=== PATIENT | female | born 1935 | race Caucasian/White ===

== ENCOUNTER 2017-08-04 11:30 | Observation (INO) | payer MEDICARE, MEDICAID ==
--- NOTE | 2017-08-04 13:01 | ER Document Report ---
ED Medical Screen (RME) - General Mode of Arrival: Wheelchair Information source: Patient - HPI Patient complains to provider of: Shortness of breath Onset: Other - last week Associated Symptoms: Other - see notes above <MAYELIN RIDLEY - Last Filed: 08/04/17 12:56> <LYUBOV COHEN - Last Filed: 08/06/17 10:53> - General Chief Complaint: Shortness Of Breath Stated Complaint: BACK PAIN, DIFFICULTY BREATHING Time Seen by Provider: 08/04/17 12:49 Notes: 82 year old female with history of CHF presents to the ED complaining of shortness of breath that has worsened since last . Patient reports that she was admitted at [facility] for CHF last , but refused to stay. Patient was started on antibiotics for a UTI while at [place]. Patient additionally complains of right back pain that radiates down her right leg which has been ongoing for a few weeks. Patient reports having a chronic productive cough which exacerbates her back pain. Patient denies any burning with urination. Patient on 20 mg Lasix BID and uses oxygen at home. (MAYELIN RIDLEY) - Related Data Allergies/Adverse Reactions: Sulfa (Sulfonamide Antibiotics) Allergy (Verified 11/17/13 18:25) aspirin [Aspirin] Adverse Reaction (Unknown, Verified 11/17/13 16:53) doxycycline [Doxycycline] Adverse Reaction (Verified 11/17/13 16:53) Past Medical History - General Information source: Patient - Social History Family history: Reviewed & Not Pertinent - Past Medical History Cardiac Medical History: Reports: Hx Congestive Heart Failure, Hx Hypercholesterolemia, Hx Hypertension Pulmonary Medical History: Reports: Hx Asthma Denies: Hx Tuberculosis Neurological Medical History: Reports: Hx Cerebrovascular Accident Renal/ Medical History: Reports: Hx Ectopic , Hx Renal Insufficiency GI Medical History: Reports: Hx Gastroesophageal Reflux Disease Musculoskeltal Medical History: Reports Hx Arthritis Skin Medical History: Reports Hx Cellulitis Psychiatric Medical History: Reports: Hx Depression Past Surgical History: Reports: Hx Cholecystectomy, Hx Hysterectomy, Hx Orthopedic Surgery - bilateral knee, R wrist - Immunizations Hx Diphtheria, Pertussis, Tetanus Vaccination: Yes <MAYELIN RIDLEY - Last Filed: 08/04/17 12:56> Review of Systems - Review of Systems Constitutional: See HPI, Recent illness - Admitted for CHF. Antibiotics for UTI EENT: No symptoms reported Cardiovascular: No symptoms reported Respiratory: See HPI, Cough, Short of breath, Sputum Gastrointestinal: No symptoms reported Genitourinary: No symptoms reported. denies: Burning Female Genitourinary: No symptoms reported Musculoskeletal: No symptoms reported Skin: No symptoms reported Hematologic/Lymphatic: No symptoms reported Neurological/Psychological: No symptoms reported <MAYELIN RIDLEY - Last Filed: 08/04/17 12:56> Physical Exam - General General appearance: Alert In distress: None - HEENT Head: Normocephalic, Atraumatic Eyes: Normal Extraocular movements intact: Yes Pupils: PERRL - Respiratory Respiratory status: No respiratory distress Breath sounds: Wheezing - bilaterally, Other - Coarse breath sounds bilaterally. Bibasilar crackles.. No: Normal - Cardiovascular Rhythm: Regular Heart sounds: Normal auscultation - Abdominal Inspection: Normal Tenderness: Nontender <MAYELIN RIDLEY - Last Filed: 08/04/17 12:56> - Vital signs Vitals: Temp Pulse Resp BP Pulse Ox 98.1 F 64 21 H 162/70 H 92 08/04/17 11:39 08/04/17 11:39 08/04/17 11:39 08/04/17 11:39 08/04/17 11:39 Course - Laboratory Result Diagrams: 08/06/17 06:10 08/06/17 06:10 <LYUBOV COHEN - Last Filed: 08/06/17 10:53> - Vital Signs Vital signs: Temp Pulse Resp BP Pulse Ox 98.0 F 70 20 119/53 L 98 08/06/17 07:30 08/06/17 10:12 08/06/17 10:12 08/06/17 07:30 08/06/17 10:12 - Laboratory Laboratory results interpreted by me: 08/04/17 08/04/17 08/04/17 13:35 13:35 13:35 Hgb 16.0 H Carbon Dioxide 34 H AST 37 H NT-Pro-B Natriuret Pep 1300 H Doctor's Discharge <MAYELIN RIDLEY - Last Filed: 08/04/17 12:56> <LYUBOV COHEN - Last Filed: 08/06/17 10:53> - Discharge Clinical Impression: COPD exacerbation Condition: Stable Disposition: ADMITTED OBSERVATION Scribe Documentation - Scribe Written by Scribe:: Dwight Eubanks, 08/04/2017 1303 acting as scribe for :: Long <MAYELIN RIDLEY - Last Filed: 08/04/17 12:56>
[2017-08-04 13:57] LABS: INTERNATIONAL RATION (INR) 0.95; PROTHROMBIN TIME 13.4 SEC (11.4-15.4)
[2017-08-04 14:01] LABS: ABSOLUTE BASOPHILS # (AUTO) 0.1 10^3/uL (0.0-0.2); ABSOLUTE EOSINOPHILS # (AUTO) 0.2 10^3/uL (0.0-0.6); ABSOLUTE LYMPHOCYTES (AUTO) 1.5 10^3/uL (0.5-4.7); ABSOLUTE MONOCYTES (AUTO) 0.8 10^3/uL (0.1-1.4); ABSOLUTE NEUT (AUTO) 7.2 10^3/uL (1.7-8.2); BASOPHILS % (AUTO) 0.5 % (0-2); EOSINOPHILS % (AUTO) 2.1 % (0-6); HEMATOCRIT 46.4 % (36.0-47.0); LYMPHOCYTES % (AUTO) 15.8 % (13-45); MEAN CORPUSCULAR HEMOGLOBIN 31.1 pg (27.0-33.4); MEAN CORPUSCULAR HGB CONC 34.4 g/dL (32.0-36.0); MEAN CORPUSCULAR VOLUME 90 fl (80-97); MONOCYTES % (AUTO) 7.8 % (3-13); PLATELET COUNT 243 10^3/uL (150-450); RED BLOOD COUNT 5.14 10^6/uL (3.72-5.28); RED CELL DISTRIBUTION WIDTH 13.8 % (11.5-14.0); SEGMENTED NEUTROPHILS % (AUTO) 73.8 % (42-78); TOTAL CELLS COUNTED % (AUTO) 100 %; WHITE BLOOD COUNT 9.8 10^3/uL (4.0-10.5)
[2017-08-04 14:13] LABS: ALANINE AMINOTRANSFERASE 36 U/L (9-52); ALBUMIN 3.6 g/dL (3.5-5.0); ALKALINE PHOSPHATASE 117 U/L (38-126); ANION GAP 6 (5-19); ASPARTATE AMINO TRANSFERASE 37 U/L (14-36); BILIRUBIN,DIRECT 0.2 mg/dL (0.0-0.4); BILIRUBIN,TOTAL 1.1 mg/dL (0.2-1.3); BLOOD UREA NITROGEN 18 mg/dL (7-20); CALCIUM 9.3 mg/dL (8.4-10.2); CARBON DIOXIDE 34 mmol/L (22-30); CHLORIDE 101 mmol/L (98-107); GLUCOSE 100 mg/dL (75-110); MAGNESIUM 1.7 mg/dL (1.6-2.3); SODIUM 140.5 mmol/L (137-145); TOTAL PROTEIN 6.9 g/dL (6.3-8.2)
[2017-08-04 14:25] LABS: NT PRO BNP 1300 pg/mL (<450)
[2017-08-04 14:26] LABS: TROPONIN I < 0.012 ng/mL
--- NOTE | 2017-08-04 14:26 | RADIOLOGY REPORT (SQ) ---
EXAM DESCRIPTION: CHEST PA/LAT COMPLETED DATE/TIME: 08/04/2017 2:14 pm REASON FOR STUDY: sob COMPARISON: November 2013 EXAM PARAMETERS: NUMBER OF VIEWS: two views TECHNIQUE: Digital Frontal and Lateral radiographic views of the chest acquired. RADIATION DOSE: NA LIMITATIONS: none FINDINGS: LUNGS AND PLEURA: No opacities, masses or pneumothorax. No pleural effusion. Chronic appe aring changes are identified. MEDIASTINUM AND HILAR STRUCTURES: No masses or contour abnormalities. HEART AND VASCULAR STRUCTURES: Cardiac silhouette is at the upper limits of normal in size. BONES: No acute findings. HARDWARE: None in the chest. OTHER: No other significant finding. IMPRESSION: NO SIGNIFICANT RADIOGRAPHIC FINDING IN THE CHEST. TECHNICAL DOCUMENTATION: JOB ID: [id number] [employer]- All Rights Reserved
[2017-08-04] MEDS ORDERED: FENTANYL CITRATE INJ/PF 100 MCG/2 ML AMPUL IV ONE (15:11)
[2017-08-04] MEDS ORDERED: IPRATROPIUM/ALBUTEROL 0.5-2.5 MG/3 ML AMPUL NEB ONE ×3 (20:56→23:47)
[2017-08-04] MEDS ORDERED: OXYCODONE HCL IR 5 MG TABLET PO PRN (20:57)
[2017-08-04] MEDS ORDERED: FUROSEMIDE INJ/PF 40 MG/4 ML SDV IV ONE (20:59)
[2017-08-04] MEDS ORDERED: METHYLPREDNISOLONE INJ 125 MG/2 ML SDV IV ONE (21:03)
--- NOTE | 2017-08-04 21:03 | ER Document Report ---
ED General - General Chief Complaint: Shortness Of Breath Stated Complaint: BACK PAIN, DIFFICULTY BREATHING Time Seen by Provider: 08/04/17 12:49 Mode of Arrival: Wheelchair Information source: Patient Notes: This is an 82-year-old female with a history of asthma, CHF, obstructive sleep apnea (CPAP), hypertension, arthritis with chronic back pain (oxycodone). Patient presents to the emergency room with shortness of breath, wheezing, cough and low back pain. Patient was in an outside hospital 2 days ago and evaluated and treated and released. She presents with persistent symptoms. - HPI Onset: Last week Onset/Duration: Gradual Quality of pain: No pain Severity: None Pain Level: Denies Associated symptoms: Nonproductive cough, Shortness of breath. denies: Fever Exacerbated by: Movement Relieved by: Remaining still Similar symptoms previously: Yes Recently seen / treated by doctor: Yes - Related Data Allergies/Adverse Reactions: Sulfa (Sulfonamide Antibiotics) Allergy (Verified 11/17/13 18:25) aspirin [Aspirin] Adverse Reaction (Unknown, Verified 11/17/13 16:53) doxycycline [Doxycycline] Adverse Reaction (Verified 11/17/13 16:53) Past Medical History - General Information source: Patient - Social History Smoking Status: Never Smoker Cigarette use (# per day): No Chew tobacco use (# tins/day): No Frequency of alcohol use: None Drug Abuse: None Lives with: Family Family History: Reviewed & Not Pertinent Patient has suicidal ideation: No Patient has homicidal ideation: No - Past Medical History Cardiac Medical History: Reports: Hx Congestive Heart Failure, Hx Hypercholesterolemia, Hx Hypertension Pulmonary Medical History: Reports: Hx Asthma Denies: Hx Tuberculosis Neurological Medical History: Reports: Hx Cerebrovascular Accident Endocrine Medical History: Reports: Hx Diabetes Mellitus Type 2 Renal/ Medical History: Reports: Hx Ectopic , Hx Renal Insufficiency. Denies: Hx Peritoneal Dialysis GI Medical History: Reports: Hx Gastroesophageal Reflux Disease Musculoskeltal Medical History: Reports Hx Arthritis Skin Medical History: Reports Hx Cellulitis Psychiatric Medical History: Reports: Hx Depression Past Surgical History: Reports: Hx Cholecystectomy, Hx Hysterectomy, Hx Orthopedic Surgery - bilateral knee, R wrist - Immunizations Hx Diphtheria, Pertussis, Tetanus Vaccination: Yes Review of Systems - Review of Systems Constitutional: denies: Chills, Fever EENT: No symptoms reported Cardiovascular: See HPI Respiratory: See HPI Gastrointestinal: No symptoms reported Genitourinary: No symptoms reported Female Genitourinary: No symptoms reported Musculoskeletal: See HPI Skin: No symptoms reported Hematologic/Lymphatic: No symptoms reported Neurological/Psychological: No symptoms reported Physical Exam - Vital signs Vitals: Temp Pulse Resp BP Pulse Ox 98.1 F 64 21 H 162/70 H 92 08/04/17 11:39 08/04/17 11:39 08/04/17 11:39 08/04/17 11:39 08/04/17 11:39 Notes: Physical exam: GENERAL: 82-year-old female, alert and oriented 3, appears short of breath. HEAD: Atraumatic, normocephalic. EYES: Pupils equal round and reactive to light, extraocular movements intact, sclera anicteric, conjunctiva are normal. ENT: TMs normal, nares patent, oropharynx clear without exudates. Moist mucous membranes. NECK: Normal range of motion, supple without obvious mass or JVD. LUNGS: Bilaterally HEART: Regular rate and rhythm without murmurs, rubs or gallops. ABDOMEN: Soft, normoactive bowel sounds. No tenderness to palpation. No guarding, no rebound. No masses appreciated. EXTREMITIES: Normal range of motion, no pitting or edema. No clubbing or cyanosis. Back: Patient does have lumbar paraspinal tenderness which is chronic. There is no obvious crepitus or step-offs NEUROLOGICAL: Cranial nerves II through XII grossly intact. Normal speech, moving all extremities. PSYCH: Normal mood, normal affect. SKIN: Warm, Dry, normal turgor, no rashes or lesions noted. Course - Re-evaluation Re-evalutation: 08/05/17 00:49 Patient is continued to wheeze. Continue with the nebulizers, IV steroids, IV antibiotics. Patient to be admitted. - Vital Signs Vital signs: Temp Pulse Resp BP Pulse Ox 98.3 F 62 15 142/75 H 94 08/05/17 01:06 08/04/17 17:30 08/05/17 00:49 08/05/17 00:49 08/05/17 00:49 - Laboratory Result Diagrams: 08/04/17 13:35 08/04/17 13:35 Laboratory results interpreted by me: 08/04/17 08/04/17 08/04/17 13:35 13:35 13:35 Hgb 16.0 H Carbon Dioxide 34 H AST 37 H NT-Pro-B Natriuret Pep 1300 H - Diagnostic Test Radiology reviewed: Image reviewed, Reports reviewed - Chest x-ray shows no obvious infiltrates - EKG Interpretation by Me Rate: Normal Rhythm: NSR - EKG shows normal sinus rhythm with a ventricular rate of 67, left axis deviation, no acute ST-T wave changes Critical Care Note - Critical Care Note Total time excluding time spent on procedures (mins): 60 Discharge - Discharge Clinical Impression: COPD exacerbation Condition: Stable Disposition: ADMITTED OBSERVATION Admitting Provider: Hospitalist - Dr. Desai Unit Admitted: Telemetry
[2017-08-04 21:22] LABS: APPEARANCE,URINE CLEAR; BILIRUBIN,URINE NEGATIVE (NEGATIVE); COLOR,URINE STRAW; GLUCOSE, URINE NEGATIVE (NEGATIVE); KETONES,URINE NEGATIVE (NEGATIVE); LEUKOCYTE ESTERASE,URINE NEGATIVE (NEGATIVE); NITRITE,URINE NEGATIVE (NEGATIVE); PROTEIN,URINE NEGATIVE (NEGATIVE); URINE SPECIFIC GRAVITY 1.009; UROBILINOGEN,URINE NEGATIVE mg/dL (<2.0)
[2017-08-04 21:29] LABS: A TYPE INFLUENZA AG NEGATIVE (NEGATIVE); B INFLUENZA AG NEGATIVE (NEGATIVE)
--- NOTE | 2017-08-04 22:47 | RADIOLOGY REPORT (SQ) ---
EXAM DESCRIPTION: L SPINE WHOLE COMPLETED DATE/TIME: 08/04/2017 10:21 pm REASON FOR STUDY: low back pain COMPARISON: None. NUMBER OF VIEWS: Five views including obliques. TECHNIQUE: AP, lateral, oblique, and sacral radiographic images acquired of the lumbar spine. LIMITATIONS: None. FINDINGS: MINERALIZATION: Osteopenia. ALIGNMENT: 4 mm anterolisthesis of L3 on L4, degenerative appearing. VERTEBRAE: Mild chronic appearing compression deformity of the L1 vertebral body. No acute appearing osseous findings. DISCS: Moderate lower lumbar Multilevel disc space narrowing with osteophytes. POSTERIOR ELEMENTS: Pedicles and facets are intact. No pars defect or posterior arch defects. Moder ate Facet arthropathy is present. HARDWARE: None in the spine. PARASPINAL SOFT TISSUES: Normal. PELVIS: Intact as visualized. No fractures or worrisome bone lesions. SI joints intact. OTHER: No other significant finding. IMPRESSION: No acute appearing osseous findings. Multilevel degenerative changes as described. TECHNICAL DOCUMENTATION: JOB ID: [id number] [place]-72 2010 [employer]- All Rights Reserved
[2017-08-04] MEDS ORDERED: CEFTRIAXONE 1 GM/D5W RTU 1 GM/50 ML RTUPB IV ONE (23:47)
[2017-08-04] MEDS ORDERED: AZITHROMYCIN INJ 500 MG VIAL IV ONE (23:47)
[2017-08-05] MEDS ORDERED: CEFTRIAXONE SODIUM 1,000 MG in DEXTROSE 5%-WATER 50 ML IV ONE (01:00)
[2017-08-05] MEDS ORDERED: ZOLPIDEM TARTRATE 5 MG TABLET PO PRN (01:48)
[2017-08-05] MEDS ORDERED: ONDANSETRON HCL INJ/PF 4 MG/2 ML SDV IV PRN (01:48)
[2017-08-05] MEDS ORDERED: ACETAMINOPHEN 325 MG TABLET PO PRN ×2 (01:48→03:36)
[2017-08-05] MEDS ORDERED: OXYCODONE-ACETAMINOPHEN 5-325 MG TABLET PO PRN (01:48)
[2017-08-05] MEDS ORDERED: IPRATROPIUM/ALBUTEROL 0.5-2.5 MG/3 ML AMPUL NEB ONE (02:15)
--- NOTE | 2017-08-05 02:18 | PDOC H&P ---
History of Present Illness Admission Date/PCP: 08/05/17 00:56 AVIVA SUBRAMANIAN Patient complains of: Nonproductive cough of several weeks duration History of Present Illness: KAVON ROBIN is a 82 year old female who relates that she has been having a nonproductive cough for several weeks. Apparently she went to another emergency room, where she was tested for influenza. This was negative and apparently she was started on antibiotic therapy. However she continued to cough and so presented to our emergency room. She was wheezing on presentation and was given nebulizer treatments with improvement. She is referred to us for ongoing care. Past Medical History Cardiac Medical History: Reports: Hyperlipidema, Hypertension Pulmonary Medical History: Reports: Asthma Denies: Tuberculosis EENT Medical History: Denies: None, Cataracts, Eyes, Ears, Nose, Throat, Other Neurological Medical History: Denies: None, Hemorrhagic CVA, Ischemic CVA, Migraine, Multiple Sclerosis, Seizures, Other Endocrine Medical History: Reports: Diabetes Mellitus Type 2 Malignancy Medical History: Reports: None GI Medical History: Reports: Gastroesophageal Reflux Disease Musculoskeltal Medical History: Reports: Arthritis Skin Medical History: Reports: None Psychiatric Medical History: Reports: Depression Traumatic Medical History: Reports: None Hematology: Reports: None Infectious Medical History: Reports: None Past Surgical History Past Surgical History: Reports: Cholecystectomy, Hysterectomy, Orthopedic Surgery - bilateral knee, R wrist Social History Information Source: Patient Lives with: Alone Smoking Status: Never Smoker Frequency of Alcohol Use: None Hx Recreational Drug Use: No Hx Prescription Drug Abuse: No - Advance Directive Resuscitation Status: Full Code Family History Family History: Hypertension Parental Family History Reviewed: Yes Children Family History Reviewed: Yes Sibling(s) Family History Reviewed.: Yes Medication/Allergy Home Medications: Albuterol Sulfate [Albuterol Sulfate Hfa] 2 puff IH Q6 11/08/13 Albuterol Sulfate [Proair HFA] 3 puff IH Q4 PRN 11/08/13 Fluoxetine HCl [Prozac] 10 mg PO DAILY 11/08/13 Levothyroxine Sodium [Synthroid] 25 mcg PO DAILY 11/08/13 Metoprolol Succinate [Toprol XL 100 mg Tablet] 100 mg PO DAILY 11/08/13 Omeprazole [Prilosec] 20 mg PO DAILY 11/08/13 Acidophilus/Bifido Longum [Lactobacillus Capsule] 1 cap PO BID #60 capsule 11/14 Clindamycin HCl [Cleocin HCl] 300 mg PO QID #40 capsule 11/14/13 Magnesium Oxide [Mag-Ox 400 mg Tablet] 400 mg PO BID #60 tablet 11/14/13 Oxycodone HCl 5 mg PO Q4 PRN #20 tablet 11/14/13 Trazodone HCl [Desyrel 50 mg Tablet] 50 mg PO QHS 11/18/13 Ciprofloxacin HCl [Cipro 500 mg Tablet] 500 mg PO Q18H #0 tablet 11/21/13 Furosemide [Lasix 20 mg Tablet] 20 mg PO DAILY #30 tablet 11/21/13 Rosuvastatin Calcium [Crestor 20 mg Tablet] 20 mg PO QHS #30 tablet 11/21/13 Valsartan [Diovan 80 mg Tablet] 80 mg PO DAILY #30 tablet 11/21/13 Allergies/Adverse Reactions: Sulfa (Sulfonamide Antibiotics) Allergy (Verified 11/17/13 18:25) aspirin [Aspirin] Adverse Reaction (Unknown, Verified 11/17/13 16:53) doxycycline [Doxycycline] Adverse Reaction (Verified 11/17/13 16:53) Review of Systems Constitutional: PRESENT: fatigue. ABSENT: chills, fever(s), night sweats Eyes: ABSENT: visual disturbances Ears: ABSENT: hearing changes Nose, Mouth, and Throat: ABSENT: headache(s), mouth pain Cardiovascular: ABSENT: chest pain, edema, orthropnea, palpitations Respiratory: PRESENT: cough, dyspnea. ABSENT: hemoptysis, sputum Gastrointestinal: PRESENT: heartburn. ABSENT: abdominal pain, constipation, diarrhea, nausea, vomiting Genitourinary: ABSENT: difficulty urinating, dysuria Musculoskeletal: PRESENT: back pain Integumentary: PRESENT: lesions Neurological: ABSENT: convulsions, syncope, vertigo Psychiatric: PRESENT: depression Endocrine: ABSENT: cold intolerance, heat intolerance, polydipsia, polyuria Physical Exam Vital Signs: Temp Pulse Resp BP Pulse Ox 98.3 F 62 15 142/75 H 94 08/05/17 01:06 08/04/17 17:30 08/05/17 00:49 08/05/17 00:49 08/05/17 00:49 General appearance: PRESENT: no acute distress, cooperative, well-nourished Head exam: PRESENT: atraumatic, normocephalic Eye exam: PRESENT: EOMI, PERRLA Ear exam: PRESENT: normal external ear exam Neck exam: ABSENT: carotid bruit, JVD, meningismus Respiratory exam: PRESENT: clear to auscultation stefan, prolonged expiratory phas , rhonchi, unlabored. ABSENT: accessory muscle use Cardiovascular exam: PRESENT: RRR. ABSENT: diastolic murmur, irregular rhythm, systolic murmur GI/Abdominal exam: PRESENT: normal bowel sounds, soft. ABSENT: distended, guarding, organolmegaly, rebound, tenderness Rectal exam: PRESENT: deferred Extremities exam: ABSENT: pedal edema Musculoskeletal exam: PRESENT: normal inspection Neurological exam: PRESENT: alert, awake, oriented to person, oriented to place , oriented to time, oriented to situation Psychiatric exam: PRESENT: appropriate affect, normal mood. ABSENT: suicidal ideation Skin exam: PRESENT: dry, warm, other - Multiple lentigo Results Laboratory Results: 08/04/17 08/04/17 08/04/17 11:47 13:35 13:35 WBC 9.8 Hgb 16.0 H Hct 46.4 Plt Count 243 PT INR Sodium 140.5 Potassium 4.0 Chloride 101 Carbon Dioxide 34 H Anion Gap 6 BUN 18 Creatinine 0.81 Glucose 100 AST 37 H ALT 36 Alkaline Phosphatase 117 Troponin I NT-Pro-B Natriuret Pep Total Protein 6.9 Albumin 3.6 Ur Leukocyte Esterase NEGATIVE Influenza A (Rapid) Influenza B (Rapid) 08/04/17 08/04/17 08/04/17 13:35 13:35 19:30 WBC Hgb Hct Plt Count PT 13.4 INR 0.95 Sodium Potassium Chloride Carbon Dioxide Anion Gap BUN Creatinine Glucose AST ALT Alkaline Phosphatase Troponin I < 0.012 < 0.012 NT-Pro-B Natriuret Pep 1300 H Total Protein Albumin Ur Leukocyte Esterase Influenza A (Rapid) Influenza B (Rapid) 08/04/17 21:00 WBC Hgb Hct Plt Count PT INR Sodium Potassium Chloride Carbon Dioxide Anion Gap BUN Creatinine Glucose AST ALT Alkaline Phosphatase Troponin I NT-Pro-B Natriuret Pep Total Protein Albumin Ur Leukocyte Esterase Influenza A (Rapid) NEGATIVE Influenza B (Rapid) NEGATIVE Impressions: Chest X-Ray 08/04/17 12:59 IMPRESSION: NO SIGNIFICANT RADIOGRAPHIC FINDING IN THE CHEST. Lumbar Spine X-Ray 08/04/17 20:58 IMPRESSION: No acute appearing osseous findings. Multilevel degenerative changes as described. Assessment & Plan - Diagnosis (1) COPD (chronic obstructive pulmonary disease) with chronic bronchitis Is this a current diagnosis for this admission?: Yes (2) Hypertensive disorder, systemic arterial Is this a current diagnosis for this admission?: Yes - Time Time Spent: 30 to 50 Minutes - Plan Summary Plan Summary: Patient will be admitted to observation she will be started on oral steroids as well as continuing bronchodilators. She does not require supplemental oxygen at this point. She has stopped wheezing. We will request a 2D echo for further evaluation of her elevated BNP. Patient will receive DVT prophylaxis with low molecular weight heparin. She will be continued on her home medications
[2017-08-05 05:30] LABS: HEMATOCRIT 44.4 % (36.0-47.0); HEMOGLOBIN 15.3 g/dL (12.0-15.5); MEAN CORPUSCULAR HGB CONC 34.4 g/dL (32.0-36.0); MEAN CORPUSCULAR VOLUME 90 fl (80-97); PLATELET COUNT 227 10^3/uL (150-450); RED BLOOD COUNT 4.94 10^6/uL (3.72-5.28); RED CELL DISTRIBUTION WIDTH 13.7 % (11.5-14.0); WHITE BLOOD COUNT 8.9 10^3/uL (4.0-10.5)
[2017-08-05 06:01] LABS: ANION GAP 10 (5-19); BLOOD UREA NITROGEN 18 mg/dL (7-20); CALCIUM 9.1 mg/dL (8.4-10.2); CARBON DIOXIDE 33 mmol/L (22-30); CHLORIDE 99 mmol/L (98-107); GLUCOSE 147 mg/dL (75-110); POTASSIUM 3.6 mmol/L (3.6-5.0); SODIUM 141.7 mmol/L (137-145)
[2017-08-05] MEDS ORDERED: IPRATROPIUM/ALBUTEROL 0.5-2.5 MG/3 ML AMPUL NEB SCH (08:00)
[2017-08-05] MEDS ORDERED: METHYLPREDNISOLONE DOSEPAK (4 MG/TAB) 21 TAB/DSPK PO PRN (08:00)
--- NOTE | 2017-08-05 08:47 | EKG REPORT ---
SEVERITY:- OTHERWISE NORMAL ECG - SINUS RHYTHM BORDERLINE LEFT AXIS DEVIATION : Confirmed by: Leah Mead MD 05-Aug-2017 08:46:50
--- NOTE | 2017-08-05 08:47 | EKG REPORT ---
SEVERITY:- BORDERLINE ECG - SINUS RHYTHM BORDERLINE IVCD WITH LAD BORDERLINE PROLONGED QT INTERVAL : Confirmed by: Leah Mead MD 05-Aug-2017 08:46:46
[2017-08-05] MEDS ORDERED: ALPRAZOLAM 0.25 MG TABLET PO PRN (09:41)
[2017-08-05] MEDS ORDERED: (PENDING PHARMACY ID) (Olmesartan Medoxomil [Benicar] 40 MG) PO SCH (10:00)
[2017-08-05] MEDS ORDERED: ERGOCALCIFEROL (VITAMIN D2) 50000 UNIT (1.25 MG) CAPSULE PO SCH (10:00)
[2017-08-05] MEDS: MAGNESIUM OXIDE 400 MG TABLET PO SCH (10:25)
[2017-08-05] MEDS: FLUOXETINE HCL 20 MG CAPSULE PO SCH (10:25)
[2017-08-05] MEDS: OXYCODONE HCL IR 5 MG TABLET PO PRN ×2 (10:26→22:02)
[2017-08-05] MEDS: FAMOTIDINE 20 MG TABLET PO SCH ×2 (10:26→21:52)
[2017-08-05] MEDS: HYDRALAZINE HCL 10 MG TABLET PO SCH ×2 (10:27→21:52)
[2017-08-05] MEDS: ENOXAPARIN SODIUM INJ 40 MG/0.4 ML DISP.SYRIN SUBCUT SCH (10:29)
[2017-08-05] MEDS: FLUTICASONE/SALMETEROL DISKUS 250-50 MCG/DOSE IH SCH ×2 (10:31→21:52)
[2017-08-05] MEDS: DOCUSATE SODIUM 100 MG CAPSULE PO SCH (10:31)
[2017-08-05] MEDS: LOSARTAN POTASSIUM 50 MG TABLET PO SCH (12:07)
[2017-08-05] MEDS: METOPROLOL SUCCINATE 50 MG TAB.SR.24H PO SCH (12:08)
--- NOTE | 2017-08-05 13:29 | PROGRESS NOTE E ---
Progress Note NAME: KAVON ROBIN : 1935 AGE: 82Y DATE: 08/05/2017 ROOM: ED70 SUBJECTIVE: The patient is currently lying on a stretcher in the ED. Family is present at the bedside and quite active in the patient's care. The patient states that she does feel better than when she came in. She currently denies any nausea, vomiting, diarrhea. No dizziness or chest pain. The patient has been afebrile. Her blood pressures have been in a good range and the patient does not voice any specific concerns at this time. The patient's back pain, overall, has improved. The patient's family is quite concerned. They describe her sounding crackly, but still sounds more of wheezing that is their concern. The patient did receive a dose of Lasix in the emergency department. Currently awaiting echocardiogram and the patient does not voice any specific concerns at this time. REVIEW OF SYSTEMS: Negative. MEDICATIONS: Medications have been reviewed. OBJECTIVE: GENERAL: The patient is a 76-year-old, female who is awake, alert and oriented to person, place, time, and situation. She is verbal, conversational, and does not appear to be in any acute distress. VITAL SIGNS: As follows: Temperature is 97.8, pulse 82, respirations 16, blood pressure 129/67, oxygen saturation 94% on room air. SKIN: Warm and dry. No rash. She is not diaphoretic. HEENT: Pupils equal, round and reactive to light and accommodation. Conjunctivae pink. There is no evidence of JVP. CARDIOVASCULAR SYSTEM: Heart is regular. No rub. CHEST: Diminished with expiratory wheezes noted in lung enamorado. ABDOMEN: Soft, nontender, nondistended. Bowel sounds are present. EXTREMITIES: No clubbing, cyanosis, or edema; +2 pedal pulses noted bilaterally. PSYCHIATRIC: Appropriate affect, pleasant mood. DIAGNOSTICS: Lab values are as follows: Hematology obtained on 08/05/2017: WBCs are 8.9, hemoglobin 15.3, hematocrit 44.4. Platelet count is 227,000. Chemistry obtained on 08/05/2017: Sodium 141, potassium 3.6, chloride 99, carbon dioxide 33, BUN 18, creatinine 0.84, glucose 147. Calcium is 9.1. IMPRESSION AND PLAN: 1. Chronic obstructive pulmonary disease exacerbation. The patient's symptoms overall appear much improved. Will continue home inhalers and will change nebulizers from scheduled to p.r.n. Xopenex. The patient continues on steroid taper, as well. Will follow. 2. Diastolic dysfunction. The patient states that she was told in [place] that she did not have heart failure. The patient did have diastolic dysfunction during a previous admission. Currently awaiting echo. Will follow. 3. Acute hypoxemic respiratory failure, most likely secondary to the above, currently awaiting echo to help differentiate this and follow. 4. Hypothyroidism. Will continue levothyroxine. 5. Depression. Continue the patient's home medication. 6. Hypertension. Will continue the patient's home medications. 7. Hyperlipidemia. Will continue the patient's home medications. 8. Gastroesophageal reflux disease. Will continue proton pump inhibitor therapy. DISPOSITION: The patient is a FULL CODE. Pending patient's symptomatology and diagnostic findings, we will reevaluate in the a.m. TIME SPENT: On this followup including assessment, plan, physical examination, patient education, review of records, and family meeting is 25 minutes. DICTATING PHYSICIAN: VIJAY NICE NP [id number] PHY#: [id number] ID: [id number] JOB#: [id number] ACCT: [id number] cc: > ETHAN
[2017-08-05] MEDS: LEVALBUTEROL HCL NEB 1.25 MG/3 ML AMPUL NEB PRN (17:52)
[2017-08-05] MEDS: ATORVASTATIN CALCIUM 20 MG TABLET PO SCH (21:52)
[2017-08-06] MEDS: LEVALBUTEROL HCL NEB 1.25 MG/3 ML AMPUL NEB PRN (00:08)
[2017-08-06] MEDS: LANSOPRAZOLE 15 MG TAB.RAP.DR PO SCH (05:29)
[2017-08-06] MEDS: LEVOTHYROXINE SODIUM 0.025 MG TABLET PO SCH (05:29)
[2017-08-06 06:39] LABS: MEAN CORPUSCULAR HEMOGLOBIN 30.9 pg (27.0-33.4); MEAN CORPUSCULAR HGB CONC 34.1 g/dL (32.0-36.0); MEAN CORPUSCULAR VOLUME 91 fl (80-97); PLATELET COUNT 220 10^3/uL (150-450); RED BLOOD COUNT 4.52 10^6/uL (3.72-5.28); RED CELL DISTRIBUTION WIDTH 13.7 % (11.5-14.0); WHITE BLOOD COUNT 9.5 10^3/uL (4.0-10.5)
[2017-08-06 06:52] LABS: ANION GAP 10 (5-19); BLOOD UREA NITROGEN 32 mg/dL (7-20); CALCIUM 9.1 mg/dL (8.4-10.2); CARBON DIOXIDE 30 mmol/L (22-30); CHLORIDE 99 mmol/L (98-107); GLUCOSE 101 mg/dL (75-110); POTASSIUM 3.6 mmol/L (3.6-5.0)
[2017-08-06] MEDS ORDERED: FUROSEMIDE 20 MG TABLET PO SCH (10:00)
[2017-08-06] MEDS: METOPROLOL SUCCINATE 50 MG TAB.SR.24H PO SCH (11:15)
[2017-08-06] MEDS: FLUOXETINE HCL 20 MG CAPSULE PO SCH (11:17)
[2017-08-06] MEDS: MAGNESIUM OXIDE 400 MG TABLET PO SCH (11:17)
[2017-08-06] MEDS: DOCUSATE SODIUM 100 MG CAPSULE PO SCH (11:17)
[2017-08-06] MEDS: ENOXAPARIN SODIUM INJ 40 MG/0.4 ML DISP.SYRIN SUBCUT SCH (11:18)
[2017-08-06] MEDS: FAMOTIDINE 20 MG TABLET PO SCH ×2 (11:18→21:56)
[2017-08-06] MEDS: FLUTICASONE/SALMETEROL DISKUS 250-50 MCG/DOSE IH SCH ×2 (11:19→21:56)
[2017-08-06] MEDS: OXYCODONE HCL IR 5 MG TABLET PO PRN (11:19)
--- NOTE | 2017-08-06 15:39 | PROGRESS NOTE E ---
Progress Note NAME: KAVON ROBIN : 1935 AGE: 82Y DATE: 08/06/2017 ROOM: 423 SUBJECTIVE: The patient is currently lying in bed. She states that overall, her breathing is better today. She still complains of lower back pain which has been a chronic issue for her. The patient's x-ray is consistent with osteoarthritis. The patient denies any nausea, vomiting, diarrhea. No cough or sputum production. No fevers or chills. Patient has been afebrile. Blood pressures have been in a good range and the patient does not voice any other concerns at this time. REVIEW OF SYSTEMS: Review of systems is negative. MEDICATIONS: Medications have been reviewed. OBJECTIVE: GENERAL: The patient is an 82-year-old, female who is awake, alert and oriented to person, place, time, and situation. She is verbal, conversational; does not appear to be in any acute distress. VITAL SIGNS: As follows: Temperature is 98.4, pulse 67, respirations 18, blood pressure 123/52. Oxygen saturation 92% on room air. SKIN: Warm and dry. No rash. Not diaphoretic. HEENT: Pupils equal, round, reactive to light and accommodation. Conjunctivae pink. There is no evidence of JVP. CARDIOVASCULAR SYSTEM: Heart is regular. No rub. CHEST: Diminished, symmetrical, unlabored. ABDOMEN: Soft, nontender, nondistended. BACK: No CVA tenderness or sacral edema. EXTREMITIES: No clubbing, cyanosis, or edema. PSYCHIATRIC: Appropriate affect, pleasant mood. DIAGNOSTICS: Lab values are as follows: Hematology obtained on 08/06/2017: WBCs are 9.5, hemoglobin 14.0, hematocrit 41.1. Platelet count is 220,000. Chemistry obtained on 08/06/2017: Sodium 139, potassium 3.6, chloride 99, carbon dioxide 30, BUN 32, creatinine 1.59, glucose 101. Calcium is 9.1. IMPRESSION AND PLAN: 1. ACUTE ON CHRONIC DIASTOLIC CONGESTIVE HEART FAILURE. THE PATIENT IMPROVED WITH A MINIMAL DIURESIS. Currently awaiting repeat echocardiogram. 2. CHRONIC OBSTRUCTIVE PULMONARY DISEASE EXACERBATION. OVERALL THE PATIENT'S SYMPTOMS ARE MUCH IMPROVED. Continue current medications. 3. ACUTE HYPOXEMIC RESPIRATORY FAILURE SECONDARY TO THE ABOVE; OVERALL, MUCH IMPROVED. 4. HYPOTHYROIDISM. Continue Levothyroxine. 5. DEPRESSION. Continue home medication. 6. HYPERTENSION. Will continue the patient's home meds. 7. HYPERLIPIDEMIA. Will continue patient's home medication. 8. GASTROESOPHAGEAL REFLUX DISEASE. Will continue PPI. DISPOSITION: The patient is a FULL CODE. Pending patient's symptomatology and diagnostic findings, we will reevaluate in the a.m. Time spent on this followup including assessment, plan, physical examination, patient education, review of records, and family meeting is 35 minutes. DICTATING PHYSICIAN: VIJAY NICE NP [id number] PHY#: [id number] ID: [id number] JOB#: [id number] ACCT: [id number] cc: >
[2017-08-06] MEDS: LOSARTAN POTASSIUM 50 MG TABLET PO SCH (16:00)
[2017-08-06] MEDS: HYDRALAZINE HCL 10 MG TABLET PO SCH ×2 (16:01→21:57)
[2017-08-06] MEDS: OXYCODONE-ACETAMINOPHEN 5-325 MG TABLET PO PRN (18:07)
--- NOTE | 2017-08-06 18:57 | XCELERA REPORT ---
[address] [address] Transthoracic Echocardiogram Report Name: KAVON ROBIN Age: 82 yrs Gender: Female : 1935 Patient Status: Inpatient Patient Location: [address] [place] [address] Study Date: 08/06/2017 03:09 PM Height: 62 in Weight: 234 lb BSA: 2.0 m2 Procedure: A complete two-dimensional transthoracic echocardiogram was performed (2D, M-mode, spectral and color flow Doppler). The study was technically difficult with many images being suboptimal in quality. Reason For Study: elevated bnp Ordering Physician: RICHARD KILLIAN Performed By: Evangelina Johnson Interpretation Summary The left ventricular ejection fraction is normal. There is mild concentric left ventricular hypertrophy. The left ventricle is grossly normal size. Doppler measurements suggest pseudonormalized left ventricular relaxation, which is associated with grade II/IV or mild to moderate diastolic dysfunction Wall motion cannot be accurately commented on, but no definite regional wall motion abnormalities noted. The right ventricle is mildly dilated. There is normal right ventricular wall thickness. The right ventricular systolic function is normal. The right atrium is normal in size The left atrium is mildly dilated. There is a trace amount of mitral regurgitation There is no mitral valve stenosis. No aortic regurgitation is present. There is no aortic valve stenosis There is a trace to mild amount of tricuspid regurgitation There is mild pulmonary hypertension by echo Right ventricular systolic pressure is estimated to be elevated at 30- 40mmHg. The aortic root is not well visualized. The inferior vena cava was not well visualized There is no pericardial effusion. MMode/2D Measurements & Calculations RVDd: 2.7 cm LVIDd: 4.1 cm FS: 37.9 % Ao root diam: 2.9 cm IVSd: 1.2 cm LVIDs: 2.6 cm EDV(Teich): 75.6 ml LVPWd: 1.2 cm ESV(Teich): 23.8 ml Ao root area: 6.5 cm2 EF(Teich): 68.5 % Doppler Measurements & Calculations MV E max shikha: MV dec slope: Ao V2 max: LV V1 max P.6 cm/sec 141.8 cm/sec 4.4 mmHg MV A max shikha: 179.4 cm/sec2 Ao max PG: LV V1 max: 64.8 cm/sec MV dec time: 8.0 mmHg 104.7 cm/sec MV E/A: 0.83 0.30 sec PA V2 max: TR max shikha: 89.2 cm/sec 269.2 cm/sec PA max PG: TR max P.0 mmHg 3.2 mmHg Left Ventricle The left ventricle is grossly normal size. There is mild concentric left ventricular hypertrophy. The left ventricular ejection fraction is normal. Doppler measurements suggest pseudonormalized left ventricular relaxation, which is associated with grade II/IV or mild to moderate diastolic dysfunction. Wall motion cannot be accurately commented on, but no definite regional wall motion abnormalities noted. Right Ventricle The right ventricle is mildly dilated. There is normal right ventricular wall thickness. The right ventricular systolic function is normal. Atria The right atrium is normal in size. The left atrium is mildly dilated. Interarterial septum not well visualized and not well dopplered. Cannot comment on ASD/PFO presence. Mitral Valve The mitral valve is grossly normal. There is no mitral valve stenosis. There is a trace amount of mitral regurgitation. Aortic Valve The aortic valve is not well visualized secondary to technical limitations. There is no aortic valve stenosis. No aortic regurgitation is present. Tricuspid Valve The tricuspid valve is not well visualized secondary to technical limitations. There is no tricuspid stenosis. There is a trace to mild amount of tricuspid regurgitation. There is mild pulmonary hypertension by echo. Right ventricular systolic pressure is estimated to be elevated at 30-40mmHg. Pulmonic Valve The pulmonic valve is not well visualized. Great Vessels The aortic root is not well visualized. The inferior vena cava was not well visualized. Effusions There is no pericardial effusion. : RICHARD KILLIAN > Julissa Carvajal
[2017-08-06] MEDS: ATORVASTATIN CALCIUM 20 MG TABLET PO SCH (21:56)
[2017-08-06] MEDS ORDERED: METHYLPREDNISOLONE 4 MG TABLET PO ONE (22:15)
[2017-08-07] MEDS ORDERED: METHYLPREDNISOLONE 4 MG TABLET ONE (00:05)
[2017-08-07 05:17] LABS: HEMATOCRIT 41.8 % (36.0-47.0); HEMOGLOBIN 14.1 g/dL (12.0-15.5); MEAN CORPUSCULAR HEMOGLOBIN 30.8 pg (27.0-33.4); MEAN CORPUSCULAR HGB CONC 33.8 g/dL (32.0-36.0); MEAN CORPUSCULAR VOLUME 91 fl (80-97); PLATELET COUNT 195 10^3/uL (150-450); RED BLOOD COUNT 4.59 10^6/uL (3.72-5.28); RED CELL DISTRIBUTION WIDTH 14.2 % (11.5-14.0); WHITE BLOOD COUNT 6.4 10^3/uL (4.0-10.5)
[2017-08-07] MEDS: LANSOPRAZOLE 15 MG TAB.RAP.DR PO SCH (05:38)
[2017-08-07] MEDS: LEVOTHYROXINE SODIUM 0.025 MG TABLET PO SCH (05:38)
[2017-08-07 05:44] LABS: ANION GAP 8 (5-19); BLOOD UREA NITROGEN 41 mg/dL (7-20); CALCIUM 8.9 mg/dL (8.4-10.2); CARBON DIOXIDE 30 mmol/L (22-30); CHLORIDE 101 mmol/L (98-107); GLUCOSE 115 mg/dL (75-110); POTASSIUM 4.1 mmol/L (3.6-5.0)
[2017-08-07] MEDS: HYDRALAZINE HCL 10 MG TABLET PO SCH (10:19)
--- NOTE | 2017-08-07 10:19 | DISCHARGE SUMMARY E ---
Discharge Summary NAME: KAVON ROBIN : 1935 AGE: 82Y ADMITTED: 08/05/2017 DISCHARGED: 08/07/2017 CODE STATUS: FULL CODE. PRIMARY CARE PROVIDER: Jules Mason DISCHARGE DIAGNOSES: 1. Chronic obstructive pulmonary disease exacerbation. 2. Jyfrb-cp-gxlpiae diastolic congestive heart failure. 3. Czpgm-mr-bdtgylq hypoxemic respiratory failure secondary to numbers 1 and 2. 4. Hypothyroidism. 5. Depression. 6. Hypertension. 7. Hyperlipidemia. 8. Gastroesophageal reflux disease. 9. Chronic kidney disease stage III with a baseline creatinine of 2.0. DISCHARGE MEDICATIONS: 1. Prednisone 60 mg taper. 2. Oxycodone 10 mg p.o. q.8 hours p.r.n., 20 tablets with 0 refills. 3. Singulair 10 mg p.o. at hour of sleep, 30 tablets with 0 refills. 4. Advair 500/50 one inhalation q.12 hours, 1 inhaler with 0 refills. 5. Albuterol 2.5 mg inhalation nebs q.8 hours p.r.n., 30 with 0 refills. 6. Omeprazole 20 mg p.o. daily. 7. Benicar 40 mg p.o. daily. 8. Toprol XL 100 mg p.o. daily. 9. Magnesium oxide 400 mg p.o. daily. 10. Synthroid 25 mcg p.o. every a.m. 11. Apresoline 10 mg p.o. q.12 hours. 12. Lasix 20 mg p.o. every a.m. 13. Prozac 20 mg p.o. every a.m. 14. Vitamin D 50,000 units p.o. weekly on Thursday. 15. Lipitor 20 mg p.o. at hour of sleep. 16. Xanax 0.25 mg p.o. daily p.r.n. 17. Ventolin HFA 1-2 puffs inhalation q.4 hours p.r.n. DURABLE EQUIPMENT: 1. Wheelchair as recommended by physical therapy. 2. Nebulizer, 1 starter kit. DIET: Heart healthy. ACTIVITY: As per home health physical therapy. CONDITION: Fair. DIAGNOSTICS: Lab values are as follow: Hematology obtained on 08/07/2017: WBCs are 6.4, hemoglobin is 14.1, hematocrit is 41.8, platelet count is 295,000. Coagulation obtained on 08/04/2017: PT is 30.4, INR is 0.95. Chemistry obtained on 08/07/2017: Sodium is 139, potassium 4.0, chloride is 101, carbon dioxide 30, BUN 41, creatinine is 2.34, glucose 115, calcium is 8.9, magnesium is 1.7, bilirubin is 1.1, AST 37, ALT is 36, alk phos 117, troponin 0.012, BNP is 1300, total protein 6.9, albumin 3.6. Urinalysis obtained on 08/04/2017: Color straw, appearance clear, pH is 7, specific gravity is 1.009, protein 30, glucose negative, ketones negative, occult blood negative, nitrate negative, bilirubin negative, urobilinogen negative, leukocyte esterase negative, WBC 1, RBC 0, casts 2. Serology obtained on 08/04/2017: Influenza A and B are negative. Microbiology: Blood cultures obtained on 08/05/2017 reveal no growth. EKG obtained on 08/04/2017 reveals sinus rhythm with a left axis deviation. EKG obtained on 08/05/2017 reveals sinus rhythm. Echocardiogram obtained on 08/06/2017 reveals grade 2/4 or mild to moderate diastolic dysfunction with no comment of valvular disease with elevated right RV pressure of 30-40. Chest x-ray obtained on 08/04/2017 reveals cardiac silhouette that is slightly enlarged. No significant other radiographic finding of the chest. Lumbar spine x-ray obtained on 08/04/2017 reveals no acute appearing osseous findings. Multilevel degenerative changes in the back. PHYSICAL EXAMINATION: GENERAL: On examination, the patient is a well-developed, well-nourished, 82-year-old female who is awake, alert, and oriented to person, place, time, and situation. She is verbal, conversational, and does not appear to be in any acute distress. VITAL SIGNS: Temperature is 98.1, pulse 67, respirations 20, blood pressure 135/52, oxygen saturation is 96% on 2 L nasal cannula. SKIN: Warm and dry. No rash. She is not diaphoretic. HEENT: Pupils equal, round, reactive to light and accommodation. Conjunctivae are pink. No evidence of JVP. CARDIOVASCULAR: Heart is regular. There is no murmur or rub. CHEST: Slight expiratory wheezes upper lung enamorado but symmetrical and unlabored. ABDOMEN: Soft, nontender, nondistended. BACK: No CVA tenderness or sacral edema. EXTREMITIES: No clubbing, cyanosis, or edema. PSYCHIATRIC: Appropriate affect. Pleasant mood. HISTORY OF PRESENT ILLNESS: The patient is an 82-year-old female with a past medical history of chronic obstructive pulmonary disease and chronic kidney disease stage III as well as diastolic dysfunction. The patient presented to the emergency department with a chief complaint of a nonproductive cough that had been several weeks in duration. The patient relates that she had been having a nonproductive cough for several weeks now. She denies any sore throat but did have some nasal congestion. The patient went to the emergency department in [place] where she tested negative for influenza and was started on antibiotic therapy, however, the patient continued to cough and presented to our ER. She was noted to be wheezing on presentation. The patient was given a nebulizer with significant improvement in symptoms, however, the patient also had crackles noted in the bases with findings of slight volume overload on chest x-ray, and therefore the patient was diuresed with IV Lasix and referred to the hospitalist for admission and management. HOSPITAL COURSE: Patient was admitted to continuous telemetry unit. The patient was gently diuresed and the patient did diurese approximately 2-4 L of fluid. The patient's oxygen saturation was well controlled on her home 2 L nasal cannula after her diuresis. The patient was evaluated by physical therapy and was able to walk 300 feet. Recommendations were made for wheelchair just to aid in the patient's transportation. Interestingly enough the patient does have evidence of chronic kidney disease dating back as far as 2011. In 2013, the patient's baseline creatinine appeared to be in the 1.4 to 1.7 range. The patient's creatinine trend up during one admission to be as high as 3.5. During this stay, the patient presented with a creatinine of 0.81; however, with diuresis this did trend up to 1.59. The patient was resumed on her home medications including EMPERATRIZ inhibitor and creatinine stabilized in the 2.3 to 2 range. The patient does not feel dizzy and has no evidence of dehydration. The patient's chemistry panel is otherwise unremarkable, and therefore do feel that this is most likely the patient's baseline. Unfortunately this was news to the family who was not aware that patient had underlying CKD. Given that the patient's presenting BNP was found to be 1300 and the patient did have grade I diastolic dysfunction back in 2013, a repeat echo was done which did show some elevated RV pressures but mainly grade II diastolic dysfunction. At this time, the patient appears optivolemic and do believe the patient may have had some transient acute failure due to increased nebulizers and volume resuscitation in previous ER. The patient has been diuresed. Will not increase her chronic diuretic at this time as this most likely is transient as the patient has been relatively well controlled in an outpatient basis and does not appear to have had any acute cardiac events. Therefore, this can be followed up on an outpatient basis. DISCHARGE PLANNIN. The patient is to followup with her primary care provider, Jules Mason, at [facility] in an outpatient basis within 1-2 weeks for hospital followup. Do recommend possibly repeat chemistries and to monitor the patient's volume status. 2. The patient does need to be referred to orthopedics versus pain management as it appears the patient does have degenerative changes in the spine that has acutely required opiates for management. The patient may benefit from injections. 3. The patient would like to be established with Cardiology. This can be done with the grid maker the primary care provider is most comfortable with communicating. Time spent on this discharge including assessment, plan, physical examination, patient education, review of records, and family meeting is 35 minutes. DICTATING PHYSICIAN: VIJAY NICE NP [id number] PHY#: [id number] ID: [id number] JOB#: [id number] ACCT: [id number] cc:RICHARD KILLIAN M.D., MICHAEL NP >
[2017-08-07] MEDS: FLUOXETINE HCL 20 MG CAPSULE PO SCH (10:21)
[2017-08-07] MEDS: FAMOTIDINE 20 MG TABLET PO SCH (10:21)
[2017-08-07] MEDS: MAGNESIUM OXIDE 400 MG TABLET PO SCH (10:21)
[2017-08-07] MEDS: FLUTICASONE/SALMETEROL DISKUS 250-50 MCG/DOSE IH SCH (10:22)
[2017-08-07] MEDS: DOCUSATE SODIUM 100 MG CAPSULE PO SCH (10:22)
[2017-08-07] MEDS: ENOXAPARIN SODIUM INJ 40 MG/0.4 ML DISP.SYRIN SUBCUT SCH (10:22)
[2017-08-07 10:33] VITALS: BP 110/55
[2017-08-07] MEDS: OXYCODONE-ACETAMINOPHEN 5-325 MG TABLET PO PRN (10:50)
[2017-08-08] MEDS ORDERED: MEDROL DOSEPAK (DAY 2 BRKFST, LUNCH, SUPPER) PO SCH (08:00)
[2017-08-08] MEDS ORDERED: MEDROL DOSEPAK (DAY 2 HS) PO SCH (22:00)
[2017-08-09] MEDS ORDERED: MEDROL DOSEPAK (DAY 3) PO SCH (08:00)
[2017-08-10] MEDS ORDERED: MEDROL DOSEPAK (DAY 4) PO SCH (08:00)
[2017-08-11] MEDS ORDERED: MEDROL DOSEPAK (DAY 5) PO SCH (08:00)
[2017-08-12] MEDS ORDERED: MEDROL DOSEPAK (DAY 6) PO SCH (08:00)
[2017-08-12] MEDS ORDERED: ERGOCALCIFEROL (VITAMIN D2) 50000 UNIT (1.25 MG) CAPSULE PO SCH ×2 (10:00)
== END 2017-08-07 10:55 | disposition home health service (06) ==
LOC: ER 11:30 → EH 08-05 00:56 → 4W 08-05 19:20
PROVIDERS: ADMIT Internal Medicine; ATTEND Internal Medicine
PROC: 3E0F7GC Introduction of Other Therapeutic Substance into Respiratory Tract, Via Natural or Artificial Opening (ICD-10-PCS; principal; 2017-08-04)
DX: J44.1 Chronic obstructive pulmonary disease with (acute) exacerbation (principal); I50.33 Acute on chronic diastolic (congestive) heart failure; J96.21 Acute and chronic respiratory failure with hypoxia; I13.0 Hypertensive heart and chronic kidney disease with heart failure and stage 1 through stage 4 chronic kidney disease, or unspecified chronic kidney disease; N18.3 Chronic kidney disease, stage 3 (moderate); E03.9 Hypothyroidism, unspecified; F32.9 Major depressive disorder, single episode, unspecified; E78.5 Hyperlipidemia, unspecified; K21.9 Gastro-esophageal reflux disease without esophagitis; M51.36 Other intervertebral disc degeneration, lumbar region; R09.81 Nasal congestion; G47.33 Obstructive sleep apnea (adult) (pediatric); Z99.81 Dependence on supplemental oxygen; Z82.49 Family history of ischemic heart disease and other diseases of the circulatory system; Z79.899 Other long term (current) drug therapy; Z86.73 Personal history of transient ischemic attack (TIA), and cerebral infarction without residual deficits; Z90.49 Acquired absence of other specified parts of digestive tract
CPT/HCPCS: 93005 ×2; 99291; 96374; 36415 ×4; 87040; 83735; 85025; 85027 ×3; 85610; 80048 ×3; 80053; 81001; 84484; 87804; 83880; 93306; 71046; 72110; 93010 ×2; 94667; 94640 ×3; 94668 ×2; 97110; 97163; G0378 ×4; A9270 ×32; J3010; J1940; J2930; J1650 ×2; J0696; J3490 ×6; J0456; G8978; G8979; G8980; J7509; J7620

== ENCOUNTER → 2019-07-20 | Outpatient (CLI) | payer MEDICARE, MEDICAID ==
--- NOTE | 2019-07-20 18:31 | RADIOLOGY REPORT (SQ) ---
EXAM DESCRIPTION: CT CHEST WITHOUT COMPLETED DATE/TIME: 07/20/2019 12:57 pm REASON FOR STUDY: (R06.00)DYSPNEA, UNSPECIFIED R06.00 DYSPNEA, UNSPECIFIED COMPARISON: None. TECHNIQUE: CT scan performed of the chest without intravenous contrast. Images reviewed with lung, soft tissue and bone windows. Reconstructed coronal and sagittal MPR images reviewed. All images st ored on PACS. All CT scanners at this facility use dose modulation, iterative reconstruction, and/or weight based d osing when appropriate to reduce radiation dose to as low as reasonably achievable (ALARA). [facility]: Dose Right [facility]: CareDose [facility]: Dose Right [facility]: Teradose 4D [facility]: Smart 3[employer] Media RADIATION DOSE: CT Rad equipment meets quality standard of care and radiation dose reduction techniq ues were employed. CTDIvol: 17.8 mGy. DLP: 745 mGy-cm. mGy. LIMITATIONS: No technical limitations. FINDINGS: LUNGS AND PLEURA: No masses, infiltrates, or pneumothorax. No pleural effusions or pleura l calcifications. HILAR AND MEDIASTINAL STRUCTURES: No identified masses or abnormal nodes. No obvious aneurysm. HEART AND VASCULAR STRUCTURES: No aneurysm. No pericardial effusion. Coronary atherosclerosis is pr esent. UPPER ABDOMEN: 2 cm cyst in the right lobe of the liver on the final image. THYROID AND OTHER SOFT TISSUES: No thyroid mass. There is a 56 mm mass in the left breast with irreg ular margins. BONES: No significant finding. HARDWARE: None in the chest. OTHER: No other significant findings. IMPRESSION: 1. No acute finding in the thorax. 2. 56 mm left breast mass. This could represent a recent lumpectomy site. Correlate clinically. TECHNICAL DOCUMENTATION: JOB ID: [id number] Quality ID # [id number]: Final reports with documentation of one or more dose reduction techniques (e.g., Au tomated exposure control, adjustment of the mA and/or kV according to patient size, use of iterative reconstruction technique) 2010 [employer]- All Rights Reserved Reading location - IP/workstation name: [email or web address]
== END ==
LOC: RAD 12:40
PROVIDERS: ATTEND Internal Medicine Critical Care Medicine
DX: I25.10 Atherosclerotic heart disease of native coronary artery without angina pectoris (principal); R06.00 Dyspnea, unspecified; K76.89 Other specified diseases of liver; N63.20 Unspecified lump in the left breast, unspecified quadrant
CPT/HCPCS: 71250